=== PATIENT | female | born 1985 | race Two or more races ===

== ENCOUNTER 2018-05-03 13:16 | Emergency (ER) | payer BC, MEDICAID, OTHER, SELFPAY ==
[~2018-05-03] VITALS: Ht 160 cm; Wt 63.0 kg
[2018-05-03] MEDS ORDERED: SODIUM CHLORIDE FLUSH 10ML SYR IVF ONE (14:00)
[2018-05-03 14:09] LABS: BASOPHILS # (AUTO) 0.05 x10^3/uL (0-0.1); BASOPHILS % (AUTO) 1 % (0-1); EOSINOPHILS # (AUTO) 0.06 x10^3/uL (0-0.4); EOSINOPHILS % (AUTO) 1 % (1-7); LYMPHOCYTES # (AUTO) 2.25 x10^3/uL (1-3.4); LYMPHOCYTES % (AUTO) 21 % (22-44); MD NO; MEAN CORPUSCULAR HEMOGLOBIN 30.1 pg (27.0-34.8); MEAN CORPUSCULAR HGB CONC 33.6 g/dL (32.4-35.8); MEAN CORPUSCULAR VOLUME 89.7 fL (80-100); MEAN PLATELET VOLUME 8.8 fL (7.4-10.4); MONOCYTES # (AUTO) 0.64 x10^3/uL (0.2-0.8); MONOCYTES % (AUTO) 6 % (2-9); NEUTROPHILS # (AUTO) 7.65 x10^3/uL (1.8-6.8); NEUTROPHILS % (AUTO) 72 % (42-75); PLATELET COUNT 284 x10^3/uL (130-400); RED BLOOD COUNT 4.95 x10^6/uL (3.82-5.3); RED CELL DISTRIBUTION WIDTH 13.8 % (9.6-15.2)
[2018-05-03 14:20] LABS: ALBUMIN 3.6 g/dL (3.4-5.0); ANION GAP 6 mmol/L (5-15); CALCIUM 8.9 mg/dL (8.5-10.1); CHLORIDE 106 mmol/L (98-107)
[2018-05-03 14:37] LABS: CREATININE 0.79 mg/dL (0.55-1.02)
[2018-05-03 14:53] LABS: MICROSCOPIC NOT IND
[2018-05-03 15:01] LABS: CULTURE INDICATED? NO
[2018-05-03] MEDS ORDERED: ACETAMINOPHEN 500 MG TABLET ONE (15:25)
[2018-05-03] MEDS ORDERED: ACETAMINOPHEN 500 MG TABLET PO ONE (15:30)
[2018-05-03 17:00] VITALS: BP 102/66
== END 2018-05-03 17:17 | disposition home or self-care (01) ==
LOC: ED 15:41
DX: O26.891 Other specified pregnancy related conditions, first trimester (principal); O30.001 Twin pregnancy, unspecified number of placenta and unspecified number of amniotic sacs, first trimester; R10.32 Left lower quadrant pain; Z3A.01 Less than 8 weeks gestation of pregnancy
CPT/HCPCS: 36415; 76801; 76802; 80048; 81003; 82040; 84702; 85025; 99285

== ENCOUNTER 2018-11-21 08:17 | Inpatient (IN) | payer MEDICAID ==
[~2018-11-21] VITALS: Ht 160 cm; Wt 67.3 kg
[~2018-11-21 08:17] MED LIST: PREN1TAB60 PO
[2018-11-21] MEDS ORDERED: OXYTOCIN 30U/ 0.9% NaCL 500ML 500 ML IV ONE (08:44)
[2018-11-21] MEDS ORDERED: AMPICILLIN 2 GM in SODIUM CHLORIDE 0.9% 100 ML IVPB STA (08:57)
[2018-11-21] MEDS ORDERED: PLEASE ENTER HEIGHT AND WEIGHT MC SCH (09:00)
[2018-11-21] MEDS ORDERED: ONDANSETRON 2MG/ML, 2ML IVPush PRN (09:00)
[2018-11-21] MEDS ORDERED: FENTANYL PF 100 MCG/2ML IVPush PRN (09:00)
[2018-11-21] MEDS ORDERED: AMPICILLIN 2 GM in SODIUM CHLORIDE 0.9% 100 ML IVPB ONE (09:30)
[2018-11-21 09:42] LABS: BASOPHILS # (AUTO) 0.03 x10^3/uL (0-0.1); BASOPHILS % (AUTO) 1 % (0-1); EOSINOPHILS # (AUTO) 0.04 x10^3/uL (0-0.4); EOSINOPHILS % (AUTO) 1 % (1-7); LYMPHOCYTES # (AUTO) 1.51 x10^3/uL (1-3.4); LYMPHOCYTES % (AUTO) 23 % (22-44); MD SCAN; MEAN CORPUSCULAR HEMOGLOBIN 29.7 pg (27.0-34.8); MEAN CORPUSCULAR HGB CONC 32.4 g/dL (32.4-35.8); MEAN CORPUSCULAR VOLUME 91.6 fL (80-100); MEAN PLATELET VOLUME 9.6 fL (7.4-10.4); MONOCYTES # (AUTO) 0.52 x10^3/uL (0.2-0.8); MONOCYTES % (AUTO) 8 % (2-9); NEUTROPHILS % (AUTO) 68 % (42-75); PLATELET COUNT 183 x10^3/uL (130-400); RED BLOOD COUNT 4.75 x10^6/uL (3.82-5.3); RED CELL DISTRIBUTION WIDTH 15.6 % (9.6-15.2)
[2018-11-21] MEDS ORDERED: OXYTOCIN 30U/ 0.9% NaCL 500ML 500 ML ONE (09:45)
[2018-11-21] MEDS ORDERED: NEWBORN KIT ONE (09:46)
[2018-11-21] MEDS ORDERED: MISOPROSTOL 200 MCG TABLET ONE (09:46)
[2018-11-21] MEDS ORDERED: LIDOCAINE 1%, 20ML ONE (09:46)
[2018-11-21] MEDS: LACTATED RINGERS 1,000 ML IV SCH ×3 (09:50→23:16)
[2018-11-21] MEDS: AMPICILLIN 1 GM in SODIUM CHLORIDE 0.9% 100 ML IVPB SCH ×3 (12:25→21:00)
[2018-11-21] MEDS ORDERED: BETAMETHASONE 6 MG/ML, 5ML IM ONE (12:51)
[2018-11-21] MEDS ORDERED: TERBUTALINE 1 MG/ML, 1ML ONE (12:51)
[2018-11-21] MEDS: BETAMETHASONE 6 MG/ML, 5ML IM SCH (12:57)
[2018-11-21] MEDS ORDERED: TERBUTALINE 1 MG/ML, 1ML SQ ONE (13:00)
[2018-11-22] MEDS: AMPICILLIN 1 GM in SODIUM CHLORIDE 0.9% 100 ML IVPB SCH ×2 (01:00→04:53)
[2018-11-22] MEDS ORDERED: DIPHENHYDRAMINE 25 MG CAPSULE ONE (04:49)
[2018-11-22] MEDS ORDERED: DIPHENHYDRAMINE 25 MG CAPSULE PO ONE (05:00)
[2018-11-22] MEDS: LACTATED RINGERS 1,000 ML IV SCH (06:35)
[2018-11-22 09:00] VITALS: BP 108/59
[2018-11-22] MEDS: BETAMETHASONE 6 MG/ML, 5ML IM SCH (12:58)
[2018-12-02] MEDS ORDERED: IBUP-1222 PO (09:31)
[2018-12-02] MEDS ORDERED: OXYC-302 PO (09:31)
== END 2018-11-22 14:17 | disposition home or self-care (01) | DRG 831 ==
LOC: LDOP 08:17 → LDIP 08:46
PROVIDERS: ADMIT Obstetrics & Gynecology; ATTEND Obstetrics & Gynecology
DX: O30.003 Twin pregnancy, unspecified number of placenta and unspecified number of amniotic sacs, third trimester (principal); O60.03 Preterm labor without delivery, third trimester; Z3A.35 35 weeks gestation of pregnancy
CPT/HCPCS: 36415; 76815; 76819; 85025; 86762; 86850; 86900; 86923; 87340; 96360; 96361; G0378; J0290; J0702; J3105; J7120; Q0163

== ENCOUNTER 2018-12-10 01:23 | Inpatient (IN) | payer MEDICAID ==
[2018-12-10] VITALS (10 sets, daily range): BP systolic 90–136; BP diastolic 50–80
[~2018-12-10] VITALS: Ht 160 cm; Wt 61.2 kg
[~2018-12-10 01:23] MED LIST changes: +IBUP-1222 PO; +OXYC-302 PO
[2018-12-10 02:16] LABS: MEAN CORPUSCULAR HEMOGLOBIN 30.6 pg (27.0-34.8); MEAN CORPUSCULAR HGB CONC 32.5 g/dL (32.4-35.8); MEAN CORPUSCULAR VOLUME 94.1 fL (80-100); MEAN PLATELET VOLUME 7.6 fL (7.4-10.4); PLATELET COUNT 295 x10^3/uL (130-400); RED BLOOD COUNT 4.32 x10^6/uL (3.82-5.3)
[2018-12-10] MEDS ORDERED: HYDROcodone/APAP 5/325 TABLET ONE (02:16)
--- NOTE | 2018-12-10 02:17 | NUR ---
PT. WAS MADE AWARE OF NEED FOR UA; UNABLE TO PROVIDE THUS FAR. PT. REQUESTING WATER AND SOMETHING FOR PAIN. DISCUSSED WITH KILEY ALCANTARA. NEW ORDERS RECEIVED. PT. CURRENTLY OUT OF ROOM FOR US.
[2018-12-10 02:27] LABS: ALANINE AMINOTRANSFERASE 33 U/L (12-78); ALBUMIN 2.5 g/dL (3.4-5.0); ANION GAP 8 mmol/L (5-15); CALCIUM 8.7 mg/dL (8.5-10.1); CHLORIDE 104 mmol/L (98-107); CREATININE 1.16 mg/dL (0.55-1.02)
[2018-12-10] MEDS ORDERED: HYDROcodone/APAP 5/325 TABLET PO ONE (02:30)
--- NOTE | 2018-12-10 02:30 | NUR ---
PT. BACK IN ROOM. ATTEMPTED TO MEDICATE PT. FOR PAIN REQUESTED; PT. NOW DECLINING AND STATING "I WOULD RATHER JUST WAIT AND SEE IF IT GETS WORSE". PT. DENIES NEEDS. SAFETY MEASURES OBSERVED. CALL LIGHT IN REACH. PT. AGREES TO CALL RN FOR ANY FURTHER NEEDS OR IF PAIN MED IS NEEDED.
[2018-12-10 02:31] LABS: ALKALINE PHOSPHATASE 230 U/L (45-117); BILIRUBIN,TOTAL 0.6 mg/dL (0.2-1.0); TOTAL PROTEIN 7.2 g/dL (6.4-8.2)
--- NOTE | 2018-12-10 02:39 | NUR ---
VS UPDATED. REQUESTED PT. ATTEMPT FOR UA; PT. REFUSING TO ATTEMPT AND STATES "I WON'T BE ABLE TO RIGHT NOW".
[2018-12-10 02:56] LABS: MD YES
[2018-12-10 02:58] LABS: BAND#(MANUAL) 1.14 x10^3/uL; BANDS%(MANUAL) 5 % (0-7); LYMPH#(MANUAL) 0.68 x10^3/uL (1-3.4); LYMPHS% (MANUAL) 3 % (22-44); MONOS#(MANUAL) 0.91 x10^3/uL (0.3-2.7); MONOS% (MANUAL) 4 % (2-9); SEG#(MANUAL) 20.06 x10^3/uL (1.8-6.8); SEGS% (MANUAL) 88 % (42-75)
[2018-12-10 02:59] LABS: ANISOCYTOSIS 1+
[2018-12-10 03:00] LABS: <PLATELET ESTIMATE> ADEQUATE; <PLT MORPHOLOGY> NORMAL PLT MORPH
[2018-12-10] MEDS ORDERED: GENTAMICIN PER PHARMACY MC PRN ×2 (03:00→07:00)
[2018-12-10] MEDS ORDERED: CLINDAMYCIN PMX 900MG/50ML 50 ML IV ONE (03:00)
[2018-12-10] MEDS ORDERED: CLINDAMYCIN PMX 900MG/50ML 50 ML ONE (03:12)
[2018-12-10] MEDS ORDERED: SODIUM CHLORIDE 0.9% 1,000ML IVBOLUS ONE (03:30)
[2018-12-10] MEDS ORDERED: GENTAMICIN 280 MG in SODIUM CHLORIDE 0.9% 100 ML IV ONE (03:30)
--- NOTE | 2018-12-10 03:31 | NUR ---
SEATER GRINDER CALLED.
[2018-12-10] MEDS ORDERED: ONDANSETRON 2MG/ML, 2ML ONE ×2 (03:38→12:21)
--- NOTE | 2018-12-10 03:53 | NUR ---
PT. REQUESTING PAIN/NAUSEA MEDS. ADMIN PER AUG. KILEY ALCANTARA AND THIS RN IN FOR PELVIC EXAM. PT. DID ATTEMPT A URINE SAMPLE BUT REPORTS WAS UNABLE TO GET URINE INTO THE CUP. WILL UPDATED ERP ON THIS. PT. IS ON ALL MONIORS. CALL LIGHT IN REACH. MOTHER REMAINS AT BS FOR SUPPORT. SOCKS/PANTIES/PADS PROVIDED TO PT.
[2018-12-10] MEDS ORDERED: IBUPROFEN 800 MG TABLET PO ONE (04:00)
[2018-12-10] MEDS ORDERED: ONDANSETRON 2MG/ML, 2ML IVPush ONE (04:00)
[2018-12-10] MEDS ORDERED: IBUPROFEN 800 MG TABLET ONE (04:03)
--- NOTE | 2018-12-10 04:11 | NUR ---
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 NEW ORDERS RECEIVED. PT. OUT OF ROOM IN CT.
--- NOTE | 2018-12-10 04:40 | NUR ---
STRAIGHT CATH UA COLLECTED AND WALKED TO LAB. OB AT FOR EVAL AND TO DISCUSS POC.
[2018-12-10 04:51] LABS: CULTURE INDICATED? YES; MICROSCOPIC INDICATED
[2018-12-10] MEDS ORDERED: CEFTRIAXONE PMX 1GM/50ML 50 ML ONE (05:20)
[2018-12-10] MEDS ORDERED: CEFTRIAXONE PMX 1GM/50ML 50 ML IV ONE (05:30)
[2018-12-10] MEDS ORDERED: CEFTRIAXONE PMX 1GM/50ML 50 ML IV SCH (07:00)
[2018-12-10] MEDS ORDERED: PHARMACOKINETIC CONSULTATION MC ONE (07:00)
[2018-12-10] MEDS ORDERED: PHARMACOKINETIC MONITORING MC PRN (07:00)
[2018-12-10] MEDS: D5%-LACTATED RINGERS 1,000 ML IV SCH ×3 (07:16→23:09)
[2018-12-10] MEDS: CLINDAMYCIN PMX 900MG/50ML 50 ML IV SCH ×2 (11:57→19:36)
[2018-12-10] MEDS ORDERED: ACETAMINOPHEN 325 MG TABLET ONE (12:21)
[2018-12-10] MEDS: ACETAMINOPHEN 325 MG TABLET PO PRN ×2 (12:25→19:47)
[2018-12-10] MEDS: ONDANSETRON 2MG/ML, 2ML IVPush PRN ×2 (12:25→21:03)
[2018-12-11 00:23] VITALS: BP 101/60
[2018-12-11] MEDS ORDERED: GENTAMICIN 280 MG in SODIUM CHLORIDE 0.9% 100 ML IV SCH (03:30)
[2018-12-11] MEDS: CLINDAMYCIN PMX 900MG/50ML 50 ML IV SCH (03:39)
[2018-12-11] MEDS: ACETAMINOPHEN 325 MG TABLET PO PRN ×3 (03:42→17:45)
[2018-12-11 07:46] VITALS: BP 91/57
[2018-12-11] MEDS: MEROPENEM 500 MG in SODIUM CHLORIDE 0.9% 100 ML IV SCH ×2 (11:29→19:57)
[2018-12-11] MEDS: ONDANSETRON 2MG/ML, 2ML IVPush PRN ×2 (11:29→16:38)
[2018-12-11] MEDS: D5%-LACTATED RINGERS 1,000 ML IV SCH ×2 (11:29→19:58)
[2018-12-11] MEDS: ONDANSETRON ODT 4 MG PO PRN ×2 (11:39→16:38)
[2018-12-11 12:16] VITALS: BP 99/60
[2018-12-11 19:30] VITALS: BP 104/62
[2018-12-12 01:15] VITALS: BP 99/63
[2018-12-12] MEDS: ACETAMINOPHEN 325 MG TABLET PO PRN ×2 (01:19→14:05)
[2018-12-12] MEDS: ONDANSETRON 2MG/ML, 2ML IVPush PRN (01:19)
[2018-12-12] MEDS: MEROPENEM 500 MG in SODIUM CHLORIDE 0.9% 100 ML IV SCH ×2 (03:38→11:36)
[2018-12-12] MEDS: D5%-LACTATED RINGERS 1,000 ML IV SCH ×2 (04:02→11:30)
[2018-12-12 04:20] VITALS: BP 101/62
[2018-12-12] MEDS: OXYcodone/APAP 5/325MG TABLET PO PRN ×2 (04:43→14:05)
[2018-12-12 06:19] LABS: BASOPHILS # (AUTO) 0.04 x10^3/uL (0-0.1); BASOPHILS % (AUTO) 1 % (0-1); EOSINOPHILS # (AUTO) 0.02 x10^3/uL (0-0.4); EOSINOPHILS % (AUTO) 0 % (1-7); LYMPHOCYTES # (AUTO) 0.83 x10^3/uL (1-3.4); LYMPHOCYTES % (AUTO) 12 % (22-44); MD NO; MEAN CORPUSCULAR HEMOGLOBIN 29.8 pg (27.0-34.8); MEAN CORPUSCULAR HGB CONC 32.1 g/dL (32.4-35.8); MEAN CORPUSCULAR VOLUME 92.8 fL (80-100); MEAN PLATELET VOLUME 8.8 fL (7.4-10.4); MONOCYTES # (AUTO) 0.55 x10^3/uL (0.2-0.8); MONOCYTES % (AUTO) 8 % (2-9); NEUTROPHILS # (AUTO) 5.83 x10^3/uL (1.8-6.8); NEUTROPHILS % (AUTO) 80 % (42-75); PLATELET COUNT 191 x10^3/uL (130-400); RED BLOOD COUNT 3.26 x10^6/uL (3.82-5.3); RED CELL DISTRIBUTION WIDTH 17.7 % (9.6-15.2)
[2018-12-12 07:10] VITALS: BP 104/68
[2018-12-12] MEDS ORDERED: CEFTRIAXONE PMX 2GM/50ML 50 ML IV SCH (12:30)
[2018-12-12 14:00] VITALS: BP 95/44
[2018-12-12 20:40] VITALS: BP 110/61
[2018-12-13 00:12] VITALS: BP 108/68
[2018-12-13] MEDS: ACETAMINOPHEN 325 MG TABLET PO PRN (02:21)
[2018-12-13 05:15] VITALS: BP 108/65
[2018-12-13 07:45] VITALS: BP 101/54
[2018-12-13 14:00] VITALS: BP 109/63
[2018-12-13] MEDS: AMPICILLIN/SULBACTAM 3 GM in SODIUM CHLORIDE 0.9% 100 ML IV SCH ×2 (18:15→22:32)
[2018-12-13 20:38] VITALS: BP 113/68
[2018-12-13 21:46] LABS: MICROSCOPIC AUTO
[2018-12-14 03:50] VITALS: BP 105/57
[2018-12-14] MEDS: AMPICILLIN/SULBACTAM 3 GM in SODIUM CHLORIDE 0.9% 100 ML IV SCH (04:15)
[2018-12-14 08:29] VITALS: BP 107/68
[2018-12-14] MEDS ORDERED: AMOX1TAB61 PO (10:55)
== END 2018-12-14 11:50 | disposition home or self-care (01) | DRG 776 ==
LOC: ED 04:40 → EDIP 04:41 → 4NOR 05:56 → 2NW 12-11 12:19
PROVIDERS: ADMIT Obstetrics & Gynecology; ATTEND Obstetrics & Gynecology
PROC: 0T9B70Z Drainage of Bladder with Drainage Device, Via Natural or Artificial Opening (ICD-10-PCS; principal; 2018-12-10)
DX: O85 Puerperal sepsis (principal); O86.21 Infection of kidney following delivery; N13.6 Pyonephrosis; Z90.49 Acquired absence of other specified parts of digestive tract
CPT/HCPCS: 36415; 84145; 99291; J7121; 74177; 76856; 80053; 80170; 81001; 83605; 85025; 87040; 87070; 87077; 87086; 87186; 87205; 96365; 96366; 96368; 96375; G0378; J0295; J0696; J2185; J2405; Q0162; J1580; J7030